=== PATIENT | female | born 1995 | race Caucasian/White ===

== ENCOUNTER 2017-02-05 16:51 | Emergency (ER) | payer OTHER ==
[~2017-02-05] VITALS: Wt 62.0 kg
[2017-02-05] MEDS ORDERED: NAPR-260 PO (17:12)
[2017-02-05] MEDS ORDERED: CYCL-319 PO (17:13)
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
[2017-02-05] MEDS ORDERED: IBUPROFEN 800 MG TAB PO ONE (17:30)
== END 2017-02-05 17:25 | disposition home or self-care (01) ==
LOC: FTE 16:51
DX: S19.9XXA Unspecified injury of neck, initial encounter (principal); S39.92XA Unspecified injury of lower back, initial encounter; V49.40XA Driver injured in collision with unspecified motor vehicles in traffic accident, initial encounter
CPT/HCPCS: Z7502; Z7610; 99283